=== PATIENT | female | born 1935 | race Caucasian/White ===

== ENCOUNTER 2017-07-08 12:15 | Observation (INO) | payer MEDICARE, OTHER ==
[~2017-07-08] VITALS: Ht 154.9 cm; Wt 93.5 kg
[~2017-07-08 12:15] MED LIST: AMLO5 PO; ASPI325 PO; ASPI81EC PO; ATOR10 PO; CALCAVITD PO; CEPH500 PO; CHOL10002 PO; CLOBETTC TP; CYAN100 PO; Diovan320 MG PO; FISH1000 PO; FURO40 PO; GABA300 PO; HYDACE5 PO; HYDR1TAB94 PO; ISOMON60ER PO; Isosorbide Mono60 MG PO; Keflex500 MG PO; LEVFLO500 PO; LEVSOD100 PO; LEVSOD88 PO; LISI5 PO; MAGCHL64ER PO; MAGOXI400 PO; METO50ER PO; MULVITMIND PO; NEBI10 PO; NITR.4SL SL; OLME20 PO; PIOG30 PO; PYRI100 PO; RANO500T PO; SIMV40 PO; SITA50T2 PO; TOCO400 PO; ZINC15 PO; ZINC220 PO
[2017-07-08 12:50] LABS: BASOPHILS ABSOLUTE AUTO 0.03 K/mm3 (0.00-0.23); BASOPHILS PERCENT AUTO 1 % (0-2); EOSINOPHILS ABSOLUTE AUTO 0.15 K/mm3 (0.00-0.68); EOSINOPHILS PERCENT AUTO 3 % (0-6); Hemoglobin 11.7 g/dL (11.5-16.0); IMMATURE GRAN ABSOLUTE AUTO 0.01 K/mm3 (0.00-0.10); IMMATURE GRAN PERCENT AUTO 0 % (0-1); LYMPHOCYTES ABSOLUTE AUTO 1.34 K/mm3 (0.84-5.20); LYMPHOCYTES PERCENT AUTO 29 % (21-46); MONOCYTES ABSOLUTE AUTO 0.37 K/mm3 (0.16-1.47); MONOCYTES PERCENT AUTO 8 % (4-13); Mean Corpuscular HGB 33.1 pg (26.0-34.0); Mean Corpuscular HGB Conc 34.4 g/dL (31.5-36.5); Mean Corpuscular Volume 96 fL (80-100); Mean Platelet Volume 9.1 fL (9.1-12.4); NEUTROPHILS ABSOLUTE AUTO 2.73 K/mm3 (1.96-9.15); NEUTROPHILS PERCENT AUTO 59 % (41-73); Platelet Count 164 K/mm3 (150-400); RDW Coefficient Variation 13.9 % (11.7-14.2); RDW Standard Deviation 48.9 fL (35.1-46.3); Red Blood Cell Count 3.54 M/mm3 (3.80-5.20); White Blood Cell Count 4.63 K/mm3 (4.00-11.30)
[2017-07-08 13:11] LABS: Alanine Aminotransfer (ALT/SGP 11 U/L (12-78); Albumin, Blood 3.4 g/dL (3.4-5.0); Albumin/Globulin Ratio 1.1 (0.8-1.8); Alk Phos 65 U/L (50-136); Anion Gap 6 mmol/L (6-16); Aspartate Aminotrans (AST/SGOT 21 U/L (12-37); Bilirubin, Total 0.7 mg/dL (0.1-1.0); Blood Urea Nitrogen 45 mg/dL (8-24); Bun/Creatinine Ratio 32.8 (12.0-20.0); CO2, Blood 30 mmol/L (21-32); Calcium, Blood 8.7 mg/dL (8.5-10.1); Chloride, Blood 98 mmol/L (98-108); Creatinine, Blood 1.37 mg/dL (0.40-1.00); Glomerular Filtration Rate 39 (60-); Glucose, Blood 132 mg/dL (70-99); Potassium, Blood 4.1 mmol/L (3.5-5.5); Sodium, Blood 134 mmol/L (136-145); Total Protein, Blood 6.4 g/dL (6.4-8.2)
[2017-07-08 13:12] LABS: Troponin I <0.015 ng/mL (0.000-0.040)
[2017-07-08] MEDS ORDERED: Macrodantin25 MG PO (17:12)
[2017-07-08] MEDS ORDERED: Carbidopa-Levo1 EAC1 PO (17:14)
[2017-07-09] MEDS ORDERED: VALS80 PO (14:36)
== END 2017-07-09 15:16 | disposition home or self-care (01) ==
LOC: ER 12:15 → MEDS 12:16 → ENPENDDIS 07-09 14:15 → MEDS 07-09 15:16
PROVIDERS: Physician Assistant
DX: R55 Syncope and collapse (principal); R47.81 Slurred speech; E78.5 Hyperlipidemia, unspecified; E03.9 Hypothyroidism, unspecified; I13.10 Hypertensive heart and chronic kidney disease without heart failure, with stage 1 through stage 4 chronic kidney disease, or unspecified chronic kidney disease; E11.22 Type 2 diabetes mellitus with diabetic chronic kidney disease; N18.3 Chronic kidney disease, stage 3 (moderate); I25.10 Atherosclerotic heart disease of native coronary artery without angina pectoris; G89.29 Other chronic pain; M54.5 Low back pain; G47.33 Obstructive sleep apnea (adult) (pediatric); G20 Parkinson's disease; Z95.0 Presence of cardiac pacemaker; Z98.890 Other specified postprocedural states; Z95.5 Presence of coronary angioplasty implant and graft; Z88.0 Allergy status to penicillin; Z88.1 Allergy status to other antibiotic agents; Z88.6 Allergy status to analgesic agent; Z88.8 Allergy status to other drugs, medicaments and biological substances; Z79.2 Long term (current) use of antibiotics; Z79.899 Other long term (current) drug therapy
CPT/HCPCS: 36415; 70450; 71046; 80053; 81000; 82947; 84484; 85025; 93005; 93010; 96372; 99285; G0378; J1650

== ENCOUNTER → 2017-12-03 | Outpatient (CLI) | payer MEDICARE, OTHER ==
[~2017-12-03] MED LIST changes: +Carbidopa-Levo1 EAC1 PO; +Macrodantin25 MG PO; +VALS80 PO
[2017-12-03 10:53] LABS: BASOPHILS ABSOLUTE AUTO 0.04 K/mm3 (0.00-0.23); BASOPHILS PERCENT AUTO 1 % (0-2); EOSINOPHILS ABSOLUTE AUTO 0.22 K/mm3 (0.00-0.68); EOSINOPHILS PERCENT AUTO 4 % (0-6); Hematocrit 38.6 % (33.0-51.0); Hemoglobin 13.6 g/dL (11.5-16.0); IMMATURE GRAN ABSOLUTE AUTO 0.03 K/mm3 (0.00-0.10); IMMATURE GRAN PERCENT AUTO 1 % (0-1); LYMPHOCYTES PERCENT AUTO 24 % (21-46); MONOCYTES ABSOLUTE AUTO 0.46 K/mm3 (0.16-1.47); MONOCYTES PERCENT AUTO 9 % (4-13); Mean Corpuscular HGB 32.2 pg (26.0-34.0); Mean Corpuscular HGB Conc 35.2 g/dL (31.5-36.5); Mean Corpuscular Volume 92 fL (80-100); Mean Platelet Volume 9.2 fL (9.1-12.4); NEUTROPHILS PERCENT AUTO 61 % (41-73); Platelet Count 209 K/mm3 (150-400); RDW Coefficient Variation 12.3 % (11.7-14.2); RDW Standard Deviation 41.1 fL (35.1-46.3); Red Blood Cell Count 4.22 M/mm3 (3.80-5.20); White Blood Cell Count 5.05 K/mm3 (4.00-11.30)
[2017-12-03 11:02] LABS: Albumin, Blood 3.4 g/dL (3.4-5.0); Albumin/Globulin Ratio 0.9 (0.8-1.8); Bilirubin, Total 0.5 mg/dL (0.1-1.0); Creatinine, Blood 1.39 mg/dL (0.40-1.00); Globulin, Blood 3.8 g/dL (2.2-4.0); Potassium, Blood 4.7 mmol/L (3.5-5.5); Total Protein, Blood 7.2 g/dL (6.4-8.2)
== END ==
LOC: LAB EV 10:49 → LAB SHORT 10:49
PROVIDERS: Physician Assistant Medical
DX: R19.7 Diarrhea, unspecified (principal)
CPT/HCPCS: 80053; 85025

== ENCOUNTER → 2017-12-05 | Outpatient (CLI) | payer MEDICARE, OTHER ==
[2017-12-05 22:09] LABS: Stool Occult Bld Immuno 1 Negative (NEGATIVE)
== END | disposition home or self-care (01) ==
LOC: LAB EV 05:59
PROVIDERS: Physician Assistant Medical
DX: R19.7 Diarrhea, unspecified (principal)
CPT/HCPCS: 82274

== ENCOUNTER → 2018-07-03 | Outpatient (CLI) | payer MEDICARE, OTHER | END | disposition home or self-care (01) | LOC: LAB EV 10:25 → LAB SHORT 10:25 | DX: N39.0 Urinary tract infection, site not specified (principal) | CPT/HCPCS: 87077; 87086; 87186 ==

== ENCOUNTER → 2019-01-10 | Outpatient (CLI) | payer MEDICARE, OTHER | END | disposition home or self-care (01) | LOC: PLD 09:06 → LAB SHORT 09:06 | DX: D22.5 Melanocytic nevi of trunk (principal) | CPT/HCPCS: 88305 ==

== ENCOUNTER → 2020-01-04 | Outpatient (CLI) | payer MEDICARE, OTHER | END | disposition home or self-care (01) | LOC: LAB EV 09:44 → LAB SHORT 09:44 | DX: N39.0 Urinary tract infection, site not specified (principal) | CPT/HCPCS: 87077; 87086; 87186 ==

== ENCOUNTER → 2020-02-06 | Outpatient (CLI) | payer MEDICARE, OTHER | END | disposition home or self-care (01) | LOC: LAB SHORT 09:04 → PLD 09:04 | DX: C44.319 Basal cell carcinoma of skin of other parts of face (principal) | CPT/HCPCS: 88305 ==

== ENCOUNTER → 2020-04-23 | Outpatient (CLI) | payer MEDICARE, OTHER | END | disposition home or self-care (01) | LOC: LAB EV 10:12 → LAB SHORT 10:12 | DX: N39.0 Urinary tract infection, site not specified (principal) | CPT/HCPCS: 87077; 87086; 87186 ==

== ENCOUNTER → 2020-05-19 | Outpatient (CLI) | payer MEDICARE, OTHER ==
[~2020-05-19] MED LIST changes: +CARBIDOPA-LEVO1 EA15 PO; +CATAPRES0.1 MG PO; -Carbidopa-Levo1 EAC1 PO; +FLUTICASONE PRO16 GM; +METF500 PO; +METO25 PO; +NITROFURANTOIN25 MG PO; +OLMESARTAN MEDO20 MG PO; +OMEP20ER PO; +XARELTO20 MG PO
[2020-05-22 07:10] LABS: CORONAVIRUS (COVID19) CSH-NRL Positive (Negative)
== END ==
LOC: LAB 10:30 → LAB SHORT 10:30
PROVIDERS: Physician Assistant
DX: U07.1 COVID-19 (principal)
CPT/HCPCS: U0003

== ENCOUNTER 2020-06-02 16:47 | Inpatient (IN) | payer MEDICARE, OTHER ==
[~2020-06-02] VITALS: Ht 157.5 cm; Wt 90.0 kg
[~2020-06-02 16:47] MED LIST changes: -AMLO5 PO; -ASCO500 PO; -ATOR10 PO; -ATOR20 PO; -CALCITONIN-SAL3.7 M5; -CALCIUM 600 +1 EA11 PO; -CARBIDOPA-LEVO1 EA15 PO; -CATAPRES0.1 MG PO; -CENTRUM SILVER1 EAC2 PO; -CYMBALTA30 M2 PO; -DOCU100 PO; -FISH OIL 1,2001 EAC1 PO; -FLUTICASONE PRO16 GM; -FURO80 PO; -FUROSEMIDE40 MG PO; -GABA300 PO; -Isosorbide Mono60 MG PO; -LEVSOD88 PO; -METF500 PO; -METO25 PO; -METOPROLOL TART25 MG PO; -NITR100CA PO; -NITROFURANTOIN25 MG PO; -OLMESARTAN MEDO20 MG PO; -OMEP20ER PO; -SENN187 PO; -THERA-D2000 UNIT PO; -Vitamin B Comple1 EA PO; -XARELTO20 MG PO
[2020-06-02 17:40] LABS: BASOPHILS ABSOLUTE AUTO 0.07 K/mm3 (0.00-0.23); BASOPHILS PERCENT AUTO 1 % (0-2); EOSINOPHILS ABSOLUTE AUTO 0.13 K/mm3 (0.00-0.68); EOSINOPHILS PERCENT AUTO 1 % (0-6); Hematocrit 43.3 % (33.0-51.0); Hemoglobin 14.7 g/dL (11.5-16.0); IMMATURE GRAN ABSOLUTE AUTO 0.18 K/mm3 (0.00-0.10); IMMATURE GRAN PERCENT AUTO 2 % (0-1); LYMPHOCYTES ABSOLUTE AUTO 1.07 K/mm3 (0.84-5.20); LYMPHOCYTES PERCENT AUTO 12 % (21-46); MONOCYTES ABSOLUTE AUTO 0.75 K/mm3 (0.16-1.47); MONOCYTES PERCENT AUTO 8 % (4-13); Mean Corpuscular HGB 31.3 pg (26.0-34.0); Mean Corpuscular HGB Conc 33.9 g/dL (31.5-36.5); Mean Corpuscular Volume 92 fL (80-100); Mean Platelet Volume 10.1 fL (9.1-12.4); NEUTROPHILS ABSOLUTE AUTO 6.98 K/mm3 (1.96-9.15); NEUTROPHILS PERCENT AUTO 76 % (41-73); RDW Coefficient Variation 12.3 % (11.7-14.2); RDW Standard Deviation 42.2 fL (35.1-46.3); White Blood Cell Count 9.18 K/mm3 (4.00-11.30)
[2020-06-02 17:57] LABS: Platelet Count 174 K/mm3 (150-400)
[2020-06-02 17:58] LABS: Albumin, Blood 2.6 g/dL (3.4-5.0); Albumin/Globulin Ratio 0.5 (0.8-1.8); Bilirubin, Total 0.7 mg/dL (0.1-1.0); Bun/Creatinine Ratio 42.1 (12.0-20.0); Calcium, Blood 9.1 mg/dL (8.5-10.1); Globulin, Blood 4.9 g/dL (2.2-4.0); Potassium, Blood 5.4 mmol/L (3.5-5.5); Total Protein, Blood 7.5 g/dL (6.4-8.2); Troponin I 0.14 ng/mL (0.000-0.040)
[2020-06-02] MEDS ORDERED: OLMESARTAN MEDO20 MG PO (19:45)
[2020-06-02] MEDS ORDERED: GABA300 PO (19:45)
[2020-06-02] MEDS ORDERED: LEVSOD88 PO (19:46)
[2020-06-02] MEDS ORDERED: CATAPRES0.1 MG PO (19:46)
[2020-06-02] MEDS ORDERED: Isosorbide Mono60 MG PO (19:48)
[2020-06-02] MEDS ORDERED: AMLO5 PO (19:48)
[2020-06-02] MEDS ORDERED: NITROFURANTOIN25 MG PO (19:49)
[2020-06-02] MEDS ORDERED: ATOR10 PO (19:52)
[2020-06-02] MEDS ORDERED: CARBIDOPA-LEVO1 EA15 PO (19:52)
[2020-06-02] MEDS ORDERED: OMEP20ER PO (19:53)
[2020-06-02] MEDS ORDERED: FLUTICASONE PRO16 GM (19:53)
[2020-06-02 22:36] LABS: Influenza A, PCR Negative (NEGATIVE); Influenza B, PCR Negative (NEGATIVE); Resp Syncytial Virus, PCR Negative (NEGATIVE)
[2020-06-02 22:38] LABS: SARS-Cov-2 (COVID-19) PCR, MMC Positive (NEGATIVE)
--- NOTE | 2020-06-02 23:32 | NUR ---
MESSAGE LEFT FOR PALLIATIVE CAARE FOR CONSULT ORDERED BY DR PATHAK.
--- NOTE | 2020-06-02 23:46 | NUR ---
84 YR OLD FEMALE ADMITTED TO UNIT WITH (+) COVID 19 TESTING, SENT TO ED FROM [place] FOR TREATMENT. ALERT AND ORIENTED. ORIENTED TO CALL LIGHT, AGREES NOT TO GET OUT OF BED WITHOUT CALLING STAFF FOR ASSIST. PLACED ON DROPLET PRECAUTIONS FOR COVID 19. CALL LIGHT IN REACH
--- NOTE | 2020-06-03 03:47 | NUR ---
SHIFT SUMMARY HAS BEEN RESTING QUIETLY WITH FEW INTERRUPTIONS. ASSISTED TO BEDSIDE COMMODE, MED Social[employer]ze IN USE. NO C/O DISTRESS. CALL LIGHT IN REACH. ISOLATION PRECAUTIONS MAINTAINED.
[2020-06-03 07:02] LABS: Bun/Creatinine Ratio 34.3 (12.0-20.0); Calcium, Blood 8.7 mg/dL (8.5-10.1); Creatinine, Blood 1.02 mg/dL (0.40-1.00); Potassium, Blood 4.7 mmol/L (3.5-5.5); Thyroid Stimulating Hormone 1.9 uIU/mL (0.360-4.800); Troponin I 0.244 ng/mL (0.000-0.040)
--- NOTE | 2020-06-03 10:46 | NUR ---
PT IS A/OX3, PLEASANT AND COOPERATIVE, APPEARS TO BE BREATHING EASILY AT THIS TIME, PT DENIES ANY CHEST PAIN AT THIS TIME, PTS TROPONIN I WAS CALLED INTO DR. PEREZ THIS AM, CALL LIGHT IN REACH
--- NOTE | 2020-06-03 16:28 | NUR ---
Karine was resting and appeared comfortable and well managed. Her grandson JEANETTE was at the bedside showing concern, attention and love. Karine expressed grief and sorrow over her daughters impending demise and was appropriately distressed and heartbroken that she was unable to more present with them in thier time of need and loss. I provided psychological first aid and offered inspirational encouragement and audible prayer for consolation, healing and closure. Karine showed clear signs of relief, appreciation and strengthened willow.
--- NOTE | 2020-06-03 16:35 | NUR ---
PT IS A/OX3, PLEASANT AND COOPERATIVE, THE PT APPEARS TO BE BREATHING EASILY ON RA AT REST THE PT REPORTED FEELING WEAK AND SOB WITH AMBULATION INTO THE BATHROOM, THE PT HAS BEEN EMOTIONALY DISTRAUGHT OVER HER 2 CHILDREN ALSO HERE IN THE HOSPITAL WITH POOR PROGNOSIS, MICHELE CARMONA CAME AND VISITED AND OFFERED SUPPORT TO THE PT AND HER FAMILY, PT GRANDCHILDREN HAVE VISITED WITH HER TODAY, CALL LIGHT IN REACH, WILL CONTINUE TO MONITOR AND ASSESS FOR CHANGES, PT DENIED ANY C/P OR PRESSURE THIS AM
[2020-06-04 06:00] LABS: BASOPHILS ABSOLUTE AUTO 0.01 K/mm3 (0.00-0.23); BASOPHILS PERCENT AUTO 0 % (0-2); EOSINOPHILS ABSOLUTE AUTO 0.01 K/mm3 (0.00-0.68); EOSINOPHILS PERCENT AUTO 0 % (0-6); Hematocrit 36.4 % (33.0-51.0); Hemoglobin 12.1 g/dL (11.5-16.0); IMMATURE GRAN ABSOLUTE AUTO 0.07 K/mm3 (0.00-0.10); IMMATURE GRAN PERCENT AUTO 1 % (0-1); LYMPHOCYTES ABSOLUTE AUTO 0.61 K/mm3 (0.84-5.20); LYMPHOCYTES PERCENT AUTO 11 % (21-46); MONOCYTES PERCENT AUTO 2 % (4-13); Mean Corpuscular HGB 31.3 pg (26.0-34.0); Mean Corpuscular HGB Conc 33.2 g/dL (31.5-36.5); Mean Corpuscular Volume 94 fL (80-100); Mean Platelet Volume 9.6 fL (9.1-12.4); NEUTROPHILS ABSOLUTE AUTO 4.91 K/mm3 (1.96-9.15); NEUTROPHILS PERCENT AUTO 86 % (41-73); Platelet Count 216 K/mm3 (150-400); RDW Coefficient Variation 12.4 % (11.7-14.2); RDW Standard Deviation 42.8 fL (35.1-46.3); Red Blood Cell Count 3.86 M/mm3 (3.80-5.20); White Blood Cell Count 5.71 K/mm3 (4.00-11.30)
[2020-06-04 06:25] LABS: Bun/Creatinine Ratio 42.6 (12.0-20.0); Calcium, Blood 8.9 mg/dL (8.5-10.1); Creatinine, Blood 1.08 mg/dL (0.40-1.00); Potassium, Blood 5.7 mmol/L (3.5-5.5); Troponin I 0.081 ng/mL (0.000-0.040)
--- NOTE | 2020-06-04 06:37 | NUR ---
SHIFT SUMMARY PT IS AN 84 Y/O FEMALE, ADMITTED FOR ELEVATED TROPONINS AND COVID19 POSITIVE. SGE IS A&O X 3, 1PA TO THE [facility] [place]. PT SATS > 90% ON RA, BUT DOES REPORT DYSPNEA WITH EXERTION. VITAL SIGNS STABLE. TELE SHOWED PACED/AFIB IN THE 60S. NO C/O ACUTE PAIN OR NAUSEA. NO ACUTE CHANGES IN PT CONDITION NOTED. PT SLEPT WELL THROUGH THE NIGHT. WILL CONTINUE TO MONITOR AND TREAT PER EMAR UNTIL HAND OFF TO DAY SHIFT RN.
--- NOTE | 2020-06-04 16:21 | NUR ---
PT IS A/OX3, PLEASANT AND COOPERATIVE, THE PT IS UP WITH MINIMAL ASSIST TO THE BATHROOM,TODAY THE PT FELT THAT SHE WAS BREATHING A LITTLE EASIER, HOWEVER STILL SOMEWHAT SOB WITH ACTIVITY, THE PT WAS ABLE TO TOLEERATE A SHOWER TODAY, PT WAS UP IN THE [facility] FOR MEALS, THE PT DENIED ANY CHEST PAIN OR PRESSURE T/O THE DAY, FAMILY HAS BEEN IN TO SEE THE PT, SPITITUAL CARE HAS BEEN IN TO SEE THE PT ALSO, CALL LIGHT IN REACH, WILL CONTINUE TO MONITOR AND ASSESS FOR CHANGES
--- NOTE | 2020-06-04 16:39 | NUR ---
Spiritual care note: Facilitated conversation with Karine about her family. Encouraged her to speak about her dtr's lives. She has a strong willow that is sustaining her through this terrible time. Karine is deeply appreciaitive of prayer and spiritual insurance counselor. We explored her willow and beleifs around illness. We prayed together for her daughter's peace at her request. She tells me she wishes/hopes they don't have to linger. Family is being very attentive. I will remain available.
--- NOTE | 2020-06-04 19:05 | NUR ---
ASSUMED CARE RECEIVED REPORT FROM PER CRUZ. ASSUMED CARE OF PT. PT RESTING IN BED COMFORTABLY, NO S/S ACUTE DISTRESS NOTED, TALKING TO FAMILY. NO SIGNS OF RESPIRATORY DISTRESS NOTED. DENIES OTHER NEEDS AT THIS TIME. CALL LIGHT, POSSESSIONS IN REACH, BED IN LOW POSITION. WCTM.
--- NOTE | 2020-06-05 05:39 | NUR ---
SHIFT SUMMARY PT RESTING COMFORTABLY, NO S/S ACUTE DISTRESS NOTED, O2 SATS STABLE ON RA. VS REVIEWED, WNL; 02 SATS STABLE ON RA. PT DESATS WITH ACTIVITY, RECOVERS QUICKLY. SLEPT T/O MUCH OF THE NIGHT. APPEARS TO BE IN GOOD SPIRITS. PT DENIES FURTHER NEEDS AT THIS TIME. CALL LIGHT AND POSSESSIONS IN REACH, BED IN LOW POSITION WITH ALARMS ON. WCTM, REPORT OFF TO DAY RN.
[2020-06-05 05:42] LABS: BASOPHILS ABSOLUTE AUTO 0.01 K/mm3 (0.00-0.23); BASOPHILS PERCENT AUTO 0 % (0-2); EOSINOPHILS PERCENT AUTO 0 % (0-6); Hematocrit 34.4 % (33.0-51.0); Hemoglobin 11.6 g/dL (11.5-16.0); IMMATURE GRAN ABSOLUTE AUTO 0.13 K/mm3 (0.00-0.10); IMMATURE GRAN PERCENT AUTO 1 % (0-1); LYMPHOCYTES ABSOLUTE AUTO 0.86 K/mm3 (0.84-5.20); LYMPHOCYTES PERCENT AUTO 7 % (21-46); MONOCYTES ABSOLUTE AUTO 0.42 K/mm3 (0.16-1.47); MONOCYTES PERCENT AUTO 3 % (4-13); Mean Corpuscular HGB 31.5 pg (26.0-34.0); Mean Corpuscular HGB Conc 33.7 g/dL (31.5-36.5); Mean Corpuscular Volume 94 fL (80-100); Mean Platelet Volume 9.8 fL (9.1-12.4); NEUTROPHILS ABSOLUTE AUTO 11.89 K/mm3 (1.96-9.15); NEUTROPHILS PERCENT AUTO 89 % (41-73); Platelet Count 253 K/mm3 (150-400); RDW Coefficient Variation 12.2 % (11.7-14.2); RDW Standard Deviation 41.9 fL (35.1-46.3); Red Blood Cell Count 3.68 M/mm3 (3.80-5.20); White Blood Cell Count 13.31 K/mm3 (4.00-11.30)
[2020-06-05 06:02] LABS: Albumin, Blood 2.3 g/dL (3.4-5.0); Albumin/Globulin Ratio 0.6 (0.8-1.8); Bilirubin, Total 0.4 mg/dL (0.1-1.0); Bun/Creatinine Ratio 41.9 (12.0-20.0); Calcium, Blood 9.6 mg/dL (8.5-10.1); Creatinine, Blood 1.29 mg/dL (0.40-1.00); Globulin, Blood 4.1 g/dL (2.2-4.0); Potassium, Blood 5.5 mmol/L (3.5-5.5); Total Protein, Blood 6.4 g/dL (6.4-8.2)
--- NOTE | 2020-06-05 17:47 | NUR ---
SHIFT SUMMARY PT AxOx4. PLEASANT AND COOPERATIVE WITH CARE. PT STATES SHE FEELS LIKE SHE IS GETTING BETTER. ABLE TO WALK TO BATHROOM WITH SBA WITHOUT FATIGUING. PT HAD PT TODAY AND WAS ENCOURAGED TO WALK AROUND THE ROOM BEFORE MEALS. PT EMOTIONAL TODAY HER 2 DAUGHTERS ARE ALSO ADMITTED TO THE HOSPITAL AND NOT DOING WELL. PT ABLE TO GO VISIT ONE DAUGHTER TODAY. DIRECTOR APPOINTMENT REPORTS HR AFIB PACED AT 68. PT BREATHING WITHOUT DIFFICULTY ON RA WITH SATS IN MID 90'S. PT DENIES PAIN. APPETITE GOOD. VITALS REVIEWED. CURRENTLY RESTING IN RECLINER EATING DINNER. CALL LIGHT IN REACH. PLAN IS TO STAY IN HOSPITAL FOR A COUPLE MORE DAYS FOR ADI DAVEN[place], DEEPA, AND FIGURE OUT DC PLAN WITH CURRENT FAMILY CRISIS.
--- NOTE | 2020-06-05 19:10 | NUR ---
ASSUMED CARE RECEIVED REPORT FROM PER CRUZ. ASSUMED CARE OF PT. RESTING COMFORTABLY, NO S/S ACUTE DISTRESS NOTED, RESPS E/U. DENIES NEEDS AT THIS TIME. CALL LIGHT, POSSESSIONS IN REACH, BED IN LOW POSITIO WITH FWW IN REACH. WCTM.
--- NOTE | 2020-06-06 02:40 | NUR ---
PT REQUESTING TO SEE SON-IN-LAW, THIS RN INFORMED HIM OF PT'S REQUEST. SON-IN-LAW VISITED PT, STATED "IF ANYTHING WERE TO HAPPEN TO HER, PLEASE LET ME KNOW."
--- NOTE | 2020-06-06 04:36 | NUR ---
SHIFT SUMMARY PT ASLEEP, NO S/S ACUTE DISTRESS NOTED. HAS BEEN INDEPENDENT IN ROOM. PT AMBULATES WELL C FWW. VS REVIEWED, WNL, O2 SATS REMAIN STABLE ON RA. DENIES PAIN OR NEEDS AT THIS TIME. CALL LIGHT, POSSESSIONS IN REACH, BED IN LOW POSITION. WCTM, REPORT OFF TO ONCOMING RN.
[2020-06-06 05:19] LABS: BASOPHILS ABSOLUTE AUTO 0.01 K/mm3 (0.00-0.23); BASOPHILS PERCENT AUTO 0 % (0-2); EOSINOPHILS PERCENT AUTO 0 % (0-6); Hematocrit 33.8 % (33.0-51.0); Hemoglobin 11.3 g/dL (11.5-16.0); IMMATURE GRAN ABSOLUTE AUTO 0.12 K/mm3 (0.00-0.10); IMMATURE GRAN PERCENT AUTO 1 % (0-1); LYMPHOCYTES ABSOLUTE AUTO 0.62 K/mm3 (0.84-5.20); LYMPHOCYTES PERCENT AUTO 5 % (21-46); MONOCYTES ABSOLUTE AUTO 0.42 K/mm3 (0.16-1.47); MONOCYTES PERCENT AUTO 3 % (4-13); Mean Corpuscular HGB 31.7 pg (26.0-34.0); Mean Corpuscular HGB Conc 33.4 g/dL (31.5-36.5); Mean Corpuscular Volume 95 fL (80-100); Mean Platelet Volume 9.7 fL (9.1-12.4); NEUTROPHILS ABSOLUTE AUTO 12.55 K/mm3 (1.96-9.15); NEUTROPHILS PERCENT AUTO 91 % (41-73); Platelet Count 266 K/mm3 (150-400); RDW Coefficient Variation 12.4 % (11.7-14.2); RDW Standard Deviation 43.3 fL (35.1-46.3); Red Blood Cell Count 3.56 M/mm3 (3.80-5.20); White Blood Cell Count 13.72 K/mm3 (4.00-11.30)
[2020-06-06 05:53] LABS: Bun/Creatinine Ratio 46.8 (12.0-20.0); Calcium, Blood 9.7 mg/dL (8.5-10.1); Creatinine, Blood 1.09 mg/dL (0.40-1.00); Potassium, Blood 5.5 mmol/L (3.5-5.5)
--- NOTE | 2020-06-06 17:52 | NUR ---
SHIFT SUMMARY PATIENT IS PLEASANT. POOR PATIENT IS GRIEVING THE LOSS OF HER TWO DAUGHTERS. SHE DENIES ANY OTHER CONCERNS AT THIS TIME. SHE REFUSED HER INSULIN BECAUSE SHE HAD NO APPETITE. MAY NEED COVERAGE TONIGHT IF SHE IS HIGH.
[2020-06-07 06:16] LABS: Anion Gap 3 mmol/L (6-16); Blood Urea Nitrogen 45 mg/dL (8-24); Bun/Creatinine Ratio 47.8 (12.0-20.0); CO2, Blood 27 mmol/L (21-32); Calcium, Blood 9.7 mg/dL (8.5-10.1); Chloride, Blood 107 mmol/L (98-108); Creatinine, Blood 0.94 mg/dL (0.40-1.00); Glomerular Filtration Rate >60 (60-); Glucose, Blood 207 mg/dL (70-99); Potassium, Blood 5.4 mmol/L (3.5-5.5); Sodium, Blood 137 mmol/L (136-145)
--- NOTE | 2020-06-07 06:26 | NUR ---
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 Lung sounds clear in upper lobes with diminished lung sounds in lower lobes. No complaints of discomfort. She is independent to bathroom ( with walker)
--- NOTE | 2020-06-07 18:14 | NUR ---
SHIFT SUMMARY PATIENT IS PLEASANT, ALERT AND ORIENTED INDEPENDENT. PATIENT IS DOING BETTER TODAY. SHE STATES THAT SHE IS FEELING BETTER EMOTIONALLY. BLOOD SUGARS HAVE DONE WELL WITH THE INSULINCHANGE TODAY AND HER INCREASE IN APPETITE. SHE HAD DOSE 3/4 OF REMDEZIVIR. SHE ALSO STATES THAT AT HOME SHE DOES NOT HAVE MANY CARBS IN HER DIET. SHE WAS ABLE TO SHOWER TODAY.
--- NOTE | 2020-06-08 05:20 | NUR ---
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 No complaints of pain. Aware she has one more treatment with Remdesivir today before she can be discharged. States breathing much less work than a few days ago. Walks slowly but independently with FWW to bathroom and back to bed with staff present in room. Looking forward to discharge home
[2020-06-08 06:18] LABS: Bun/Creatinine Ratio 42.6 (12.0-20.0); Calcium, Blood 9.4 mg/dL (8.5-10.1); Creatinine, Blood 1.01 mg/dL (0.40-1.00); Potassium, Blood 4.9 mmol/L (3.5-5.5)
[2020-06-08] MEDS ORDERED: XARELTO20 MG PO (14:02)
[2020-06-08] MEDS ORDERED: METF500 PO (14:02)
[2020-06-08] MEDS ORDERED: METO25 PO (14:03)
--- NOTE | 2020-06-08 15:59 | NUR ---
DISCHARGE SUMMARY NO ACUTE CONCERNS AT THIS TIME. PATIENT IS ALERT AND ORIENTED. INDEPENDENT IN THE ROOM. PATIENT'S GRANDSON ARRIVED TO PICK PATIENT UP. ALL DISCHARGE INSTRUCTIONS TALKED THROUGH WITH PATIENT. ALL MEDICATIONS SENT TO PHARMACY OF CHOICE. PATIENT WHEELED DOWN BY CHARGE NURSE.
== END 2020-06-08 14:35 | disposition home or self-care (01) | DRG 177 ==
LOC: ER 16:47 → MEDS 16:48
PROVIDERS: Emergency Medicine; Family Medicine; ADMIT Internal Medicine
PROC: XW033E5 Introduction of Remdesivir Anti-infective into Peripheral Vein, Percutaneous Approach, New Technology Group 5 (ICD-10-PCS; principal; 2020-06-04)
DX: U07.1 COVID-19 (principal); J12.89 Other viral pneumonia; I24.8 Other forms of acute ischemic heart disease; N17.9 Acute kidney failure, unspecified; I13.0 Hypertensive heart and chronic kidney disease with heart failure and stage 1 through stage 4 chronic kidney disease, or unspecified chronic kidney disease; I50.32 Chronic diastolic (congestive) heart failure; Z66 Do not resuscitate; E03.9 Hypothyroidism, unspecified; E11.22 Type 2 diabetes mellitus with diabetic chronic kidney disease; E11.65 Type 2 diabetes mellitus with hyperglycemia; E78.5 Hyperlipidemia, unspecified; E87.5 Hyperkalemia; G20 Parkinson's disease; G47.33 Obstructive sleep apnea (adult) (pediatric); I25.10 Atherosclerotic heart disease of native coronary artery without angina pectoris; I48.0 Paroxysmal atrial fibrillation; N18.30 Chronic kidney disease, stage 3 unspecified; Z95.5 Presence of coronary angioplasty implant and graft; Z95.0 Presence of cardiac pacemaker; G89.29 Other chronic pain; M54.5 Low back pain; I05.0 Rheumatic mitral stenosis; R54 Age-related physical debility
CPT/HCPCS: 0241U; 36415; 80048; 80053; 82947; 84145; 84443; 84484; 85025; 93005; 93010; 93306; 96374; 96375; 96376; 97110; 97116; 97162; 99285-25; A9270; A9270-GY; G0378; J1815; J2920; J7030

== ENCOUNTER → 2020-06-02 | Outpatient (CLI) | payer MEDICARE, OTHER ==
[~2020-06-02] MED LIST changes: +ASCO500 PO; +ATOR20 PO; +CALCITONIN-SAL3.7 M5; +CALCIUM 600 +1 EA11 PO; +CENTRUM SILVER1 EAC2 PO; +CYMBALTA30 M2 PO; +DOCU100 PO; +FISH OIL 1,2001 EAC1 PO; +FURO80 PO; +FUROSEMIDE40 MG PO; +METOPROLOL TART25 MG PO; +NITR100CA PO; +SENN187 PO; +THERA-D2000 UNIT PO; +Vitamin B Comple1 EA PO
[2020-06-02 15:44] LABS: BASOPHILS ABSOLUTE AUTO 0.04 K/mm3 (0.00-0.23); BASOPHILS PERCENT AUTO 1 % (0-2); EOSINOPHILS ABSOLUTE AUTO 0.12 K/mm3 (0.00-0.68); EOSINOPHILS PERCENT AUTO 1 % (0-6); Hemoglobin 14.1 g/dL (11.5-16.0); IMMATURE GRAN ABSOLUTE AUTO 0.15 K/mm3 (0.00-0.10); IMMATURE GRAN PERCENT AUTO 2 % (0-1); LYMPHOCYTES ABSOLUTE AUTO 0.87 K/mm3 (0.84-5.20); LYMPHOCYTES PERCENT AUTO 10 % (21-46); MONOCYTES ABSOLUTE AUTO 0.68 K/mm3 (0.16-1.47); MONOCYTES PERCENT AUTO 8 % (4-13); Mean Corpuscular HGB 32.3 pg (26.0-34.0); Mean Corpuscular HGB Conc 35.3 g/dL (31.5-36.5); Mean Corpuscular Volume 92 fL (80-100); Mean Platelet Volume 9.7 fL (9.1-12.4); NEUTROPHILS ABSOLUTE AUTO 6.92 K/mm3 (1.96-9.15); NEUTROPHILS PERCENT AUTO 79 % (41-73); Platelet Count 199 K/mm3 (150-400); RDW Coefficient Variation 12.5 % (11.7-14.2); RDW Standard Deviation 41.8 fL (35.1-46.3); Red Blood Cell Count 4.37 M/mm3 (3.80-5.20); White Blood Cell Count 8.78 K/mm3 (4.00-11.30)
[2020-06-02 16:10] LABS: Albumin, Blood 2.7 g/dL (3.4-5.0); Albumin/Globulin Ratio 0.5 (0.8-1.8); Bilirubin, Total 0.6 mg/dL (0.1-1.0); Bun/Creatinine Ratio 36.4 (12.0-20.0); Calcium, Blood 9.2 mg/dL (8.5-10.1); Creatinine, Blood 1.18 mg/dL (0.40-1.00); Potassium, Blood 4.6 mmol/L (3.5-5.5); Thyroid Stimulating Hormone 1.455 uIU/mL (0.360-4.800); Total Protein, Blood 7.7 g/dL (6.4-8.2); Troponin I 0.134 ng/mL (0.000-0.040)
== END | disposition home or self-care (01) ==
LOC: LAB EV 15:39
PROVIDERS: Chiropractor
DX: R53.83 Other fatigue (principal)
CPT/HCPCS: 80053; 84443; 84484; 85025

== ENCOUNTER 2020-09-06 15:07 | Inpatient (IN) | payer MEDICARE, OTHER ==
[~2020-09-06] VITALS: Ht 157.5 cm; Wt 93.2 kg
[~2020-09-06 15:07] MED LIST changes: +AMLO5 PO; +ATOR10 PO; +CARBIDOPA-LEVO1 EA15 PO; +CATAPRES0.1 MG PO; +FLUTICASONE PRO16 GM; +GABA300 PO; +Isosorbide Mono60 MG PO; +LEVSOD88 PO; +METF500 PO; +METO25 PO; +NITROFURANTOIN25 MG PO; +OLMESARTAN MEDO20 MG PO; +OMEP20ER PO; +XARELTO20 MG PO
[2020-09-06 16:48] LABS: BASOPHILS ABSOLUTE AUTO 0.01 K/mm3 (0.00-0.23); BASOPHILS PERCENT AUTO 0 % (0-2); EOSINOPHILS ABSOLUTE AUTO 0.02 K/mm3 (0.00-0.68); EOSINOPHILS PERCENT AUTO 0 % (0-6); Hematocrit 33.8 % (33.0-51.0); Hemoglobin 11.6 g/dL (11.5-16.0); IMMATURE GRAN ABSOLUTE AUTO 0.05 K/mm3 (0.00-0.10); IMMATURE GRAN PERCENT AUTO 1 % (0-1); LYMPHOCYTES ABSOLUTE AUTO 1.09 K/mm3 (0.84-5.20); LYMPHOCYTES PERCENT AUTO 11 % (21-46); MONOCYTES ABSOLUTE AUTO 0.75 K/mm3 (0.16-1.47); MONOCYTES PERCENT AUTO 8 % (4-13); Mean Corpuscular HGB Conc 34.3 g/dL (31.5-36.5); Mean Corpuscular Volume 93 fL (80-100); Mean Platelet Volume 9.7 fL (9.1-12.4); NEUTROPHILS PERCENT AUTO 81 % (41-73); Platelet Count 161 K/mm3 (150-400); RDW Coefficient Variation 13.8 % (11.7-14.2); RDW Standard Deviation 47.5 fL (35.1-46.3); Red Blood Cell Count 3.62 M/mm3 (3.80-5.20); White Blood Cell Count 9.92 K/mm3 (4.00-11.30)
[2020-09-06 16:55] LABS: Source, Urine Voided
[2020-09-06 16:59] LABS: Appearance, Urine Hazy (Clear); Bilirubin, Urine Neg (Neg); Blood, Urine Neg (Neg); Color, Urine Yellow (P-Yellow); Glucose Qualitative, Urine Neg (Neg); Ketones, Urine Neg (Neg); Leukocyte Esterase, Urine 1+ (Neg); Nitrite, Urine Neg (Neg); Protein, Urine 2+ (Neg); Specific Gravity, Urine 1.015 (1.003-1.022); Urobilinogen, Urine NORM (Normal)
[2020-09-06 17:05] LABS: International Normalized Ratio 1.07; Prothrombin Time Results 11.4 Sec (9.7-11.5)
[2020-09-06 17:06] LABS: Amorphous Light (0-Heavy); Bacteria Rare /hpf; Red Blood Cells, Urine Not Seen /hpf (0-2); Squamous Epithelial Cells Rare /hpf (Few); White Blood Cells, Urine 0-2 /hpf (0-5)
[2020-09-06 17:13] LABS: Thyroid Stimulating Hormone 0.781 uIU/mL (0.360-4.800); Troponin I <0.015 ng/mL (0.000-0.040)
[2020-09-06 17:14] LABS: Alanine Aminotransfer (ALT/SGP 6 U/L (12-78); Albumin, Blood 2.8 g/dL (3.4-5.0); Albumin/Globulin Ratio 0.7 (0.8-1.8); Alk Phos 64 U/L (50-136); Anion Gap 9 mmol/L (6-16); Aspartate Aminotrans (AST/SGOT 14 U/L (12-37); Bilirubin, Total 0.4 mg/dL (0.1-1.0); Blood Urea Nitrogen 179 mg/dL (8-24); Bun/Creatinine Ratio 39.7 (12.0-20.0); CO2, Blood 23 mmol/L (21-32); Calcium, Blood 9.5 mg/dL (8.5-10.1); Chloride, Blood 96 mmol/L (98-108); Creatinine, Blood 4.51 mg/dL (0.40-1.00); Globulin, Blood 3.9 g/dL (2.2-4.0); Glomerular Filtration Rate 10 (60-); Glucose, Blood 171 mg/dL (70-99); Potassium, Blood 5.2 mmol/L (3.5-5.5); Sodium, Blood 128 mmol/L (136-145); Total Protein, Blood 6.7 g/dL (6.4-8.2)
[2020-09-06] MEDS ORDERED: CALCITONIN-SAL3.7 M5 (17:49)
[2020-09-06] MEDS ORDERED: CYMBALTA30 M2 PO (17:49)
[2020-09-06] MEDS ORDERED: METOPROLOL TART25 MG PO (17:50)
[2020-09-06] MEDS ORDERED: FUROSEMIDE40 MG PO (17:51)
[2020-09-06] MEDS ORDERED: CALCIUM 600 +1 EA11 PO (18:03)
[2020-09-06] MEDS ORDERED: CENTRUM SILVER1 EAC2 PO (18:03)
[2020-09-06] MEDS ORDERED: FISH OIL 1,2001 EAC1 PO (18:03)
[2020-09-06] MEDS ORDERED: THERA-D2000 UNIT PO (18:04)
[2020-09-06] MEDS ORDERED: ASCO500 PO (18:05)
[2020-09-06] MEDS ORDERED: ATOR20 PO (18:06)
[2020-09-06] MEDS ORDERED: NITR100CA PO (18:06)
[2020-09-06] MEDS ORDERED: FURO80 PO (18:09)
[2020-09-06] MEDS ORDERED: Vitamin B Comple1 EA PO (18:13)
[2020-09-06 21:06] LABS: Albumin, Blood 2.7 g/dL (3.4-5.0); Anion Gap 12 mmol/L (6-16); Blood Urea Nitrogen 176 mg/dL (8-24); Bun/Creatinine Ratio 39.3 (12.0-20.0); CO2, Blood 20 mmol/L (21-32); Calcium, Blood 9.3 mg/dL (8.5-10.1); Chloride, Blood 98 mmol/L (98-108); Creatinine, Blood 4.48 mg/dL (0.40-1.00); Glomerular Filtration Rate 10 (60-); Glucose, Blood 166 mg/dL (70-99); Phosphorus, Blood 5.3 mg/dL (2.5-4.9); Potassium, Blood 5.3 mmol/L (3.5-5.5); Sodium, Blood 130 mmol/L (136-145)
--- NOTE | 2020-09-06 22:30 | NUR ---
Transfer from ED to ICU 3 @ 2037 Pt to ICU 3 via narciso, accompanied by ED nurse and patients son-in-law. Pt has one IV in left chest with NS infusing via gravity upon arrival. Powerglide placed to JAMES. Pt is A/O to being in hospital but unable to state correct year. Also has hallucinations of seeing her cat and attempts of grab at objects not present. Pt aware of having hallucinations and states they started yesterday. Pt is drowsy and easily falls asleep while communicating. Placed on 2 L via NC to keep SPO2 > 90%, destats while sleeping to 88%. Crackles noted on right lower lobe. Pt states having orders for CPAP but she does not like to wear it. Pt has low MAPs, Dr. Santo called and orders received for [address] Santo also updated on pts lab results. Pt in AFIB with occasional PVC's and occasionally paced.
--- NOTE | 2020-09-07 | NUR ---
Update- Provider Call Dr. Santo called and updated on patients echo results. Updated on patients soft BPs and bladder scan results of 39. Provider states to call if patients SBP in the 70's. Pt resting in bed, easily awaken. Continues to be A/O to being in hospital and in [place]. Pt continues to grab at objects not present and aware that objects are not present and states "I'm having another hallucination." Pt has visual hallucinations, denies auditory hallucinations. Oxygen decreased to 1 L via NC, SPO2 > 95%.
--- NOTE | 2020-09-07 01:30 | NUR ---
Update- low MAPs Dr. Santo called in regards to patients low BP, new orders recieved for another 500 ml NS bolus. Pt resting and easily awakens.
--- NOTE | 2020-09-07 02:20 | NUR ---
Update- Provider call Dr. Granado called in regards to patients low BP ( 70/52 MAP OF 59). Recieved orders to start low dose Levophed peripherally.
[2020-09-07 03:48] LABS: Hematocrit 31.3 % (33.0-51.0); Hemoglobin 10.4 g/dL (11.5-16.0)
[2020-09-07 04:17] LABS: Magnesium, Blood 2.1 mg/dL (1.6-2.4); Thyroid Stimulating Hormone 0.531 uIU/mL (0.360-4.800); Uric Acid, Blood 9.5 mg/dL (2.6-6.0)
[2020-09-07 04:27] LABS: Albumin, Blood 2.5 g/dL (3.4-5.0); Anion Gap 9 mmol/L (6-16); Blood Urea Nitrogen 157 mg/dL (8-24); Bun/Creatinine Ratio 39.9 (12.0-20.0); CO2, Blood 21 mmol/L (21-32); Calcium, Blood 8.3 mg/dL (8.5-10.1); Chloride, Blood 104 mmol/L (98-108); Creatinine, Blood 3.93 mg/dL (0.40-1.00); Glomerular Filtration Rate 12 (60-); Glucose, Blood 104 mg/dL (70-99); Phosphorus, Blood 5.2 mg/dL (2.5-4.9); Potassium, Blood 4.7 mmol/L (3.5-5.5); Sodium, Blood 134 mmol/L (136-145)
--- NOTE | 2020-09-07 05:24 | NUR ---
Provider Call Dr. Santo called in regards to patients bladder scan results of [id number]. Orders recieved for fraire and to change NS rate to 50 ml/hr. Updated on pt labs.
[2020-09-07 05:43] LABS: Source, Urine Catheter
[2020-09-07 05:52] LABS: Bilirubin, Urine Neg (Neg); Blood, Urine Neg (Neg); Glucose Qualitative, Urine Neg (Neg); Ketones, Urine Neg (Neg); Leukocyte Esterase, Urine 1+ (Neg); Nitrite, Urine Neg (Neg); Protein, Urine 1+ (Neg); Specific Gravity, Urine 1.015 (1.003-1.022); Urobilinogen, Urine NORM (Normal)
[2020-09-07 05:56] LABS: Appearance, Urine Clear (Clear); Color, Urine Yellow (P-Yellow)
[2020-09-07 06:05] LABS: Bacteria Mod /hpf; Red Blood Cells, Urine 0-2 /hpf (0-2); Squamous Epithelial Cells Few /hpf (Few)
--- NOTE | 2020-09-07 06:10 | NUR ---
Shift Summary Pt resting in bed. On levophed 2 mcg/min to keep MAP > 65, infusing via left wrist IV. Pt more awake/A/O compared to when she arrived on unit. Aware of location, date/year, and event. Also, denies hallucinations. Pt remains on 1 L via NC, SPO2 > 99%. AFIB, PVC's, and occasional pacer spikes. Temp fraire in place, draining to gravity (200 clear dark yellow urine output). Will report to oncoming shift.
--- NOTE | 2020-09-07 07:15 | NUR ---
PT RECEIVED FROM ZACHARIAHRN. PT ON 1L/NC, SLEEPING IN BED, HEPARIN GTT@13U/HR LEVOPHED @1 MCG/MIN, TITRATING NEEDED. NS @ 10ML AND NS @ 50ML INFUSING. POWER GLIDE IN RIGHT ARM, LEFT INNER FOREARM WITH PERIFERAL IV. LUNG SOUNDS ARE DIMINISHED T/O, PULSES PRESENT, BOWEL TONES +, HR IRREGULAR. SCD'S IN PLACE, PIZANO WITH CLEAR YELLOW OUTPUT. PT AWAKENS TO VOICE, ANSWERS APPROPRIATELY.
--- NOTE | 2020-09-07 09:32 | NUR ---
PT CONTINUES TO SLEEP, DENIES ANY NEEDS AT THIS TIME. STATES THAT HER SHOULDER CONTINUES TO HURT, POINTING AT THE LEFT, STATES SHE DOESN'T WANT TO TAKE ANY PAIN MEDICATIONS BUT WILL LET ME KNOW IF IT BECOME UNBEARABLE. PT GIVEN HER AM DOSE OF PREDNISONE AND SHE SHARES HER DISSATISFACTION WITH TAKING PREDNISONE AND WHAT IT WILL MEAN FOR HER POST DISCHARGE. ENCOURAGED HER TO JUST FOCUS ON ONE DAY AT A TIME. PT REQUESTS TO GO BACK TO SLEEP. BLINDS LEFT CLOSED.
--- NOTE | 2020-09-07 15:22 | NUR ---
PT'S SON IN LAW AIRAM HERE, BROUGHT PT HER GLASSES, ONE BLUE HEARING AID AND A BOOK. THEY WANTED IT KNOWN THAT ONLY ONE HEARING AID ARRIVED HERE.
--- NOTE | 2020-09-07 18:17 | NUR ---
KERRI HAD A GOOD SHIFT. SHE HAS RESTED WELL, BEEN APPROPRIATE IN CONVERSATIONS, JOKED WITH STAFF, VISITED WITH HER SON IN LAW AND ATE BOTH LUNCH AND DINNER. SHE HAD GOOD URINE OUTPUT WITH 900ML VIA PIZANO. HER BLOOD PRESSURES HAVE REMAINED STABLE WITH MAP >65 OFF OF LEVOPHED. HEPARIN HAS CONTINUED AT 13U/HR, SCD'S IN PLACE. AND BOTH SAW HER TODAY. PT STATES SHE PREFERS NOT TO HAVE ANY DIALYSIS UNLESS IT IS ABSOLUTELY NECESSARY. PT ALSO TOLD THAT SHE DIDN'T WANT HER HEART POUNDED ON, SHE WAS CHANGED TO A DNR.
--- NOTE | 2020-09-07 22:04 | NUR ---
Care Assumed 1900 Pt sitting in bed sleeping but easily awakens. Heparin 13 unit/hr, infusing via Powerglide to JAMES. NS at rate of 50 ml/hr. A/O x 4 and denies visual hallucination. Able to state location, correct date/year, and event. Pleasant and cooperative. Pt initially on 1 L via NC, SPO2 98%. Pts oxygen removed, SPO2 96%. Pt states she does not wear oxygen at home or CPAP at night. BP stable. Pt has occasional pacer spikes and in Afib. Pt switching bundles and having frequent PVC's when turned to the left side, repositioned to supine with good effect. See rhythm strip in patient chart. Call light within reach. Will continue to monitor.
--- NOTE | 2020-09-08 00:30 | NUR ---
Provider visit Dr. Santo in to see patient. Provider asked to hold Macrobid if GRF < 50. Pt currently not recieving Macrobid. Pt sitting in bed watching TV after. A/O X 4. VSS. AFIB, occasional PVC's, and occasionally see pacer spikes. Remains on RA, SPO2 > 95%.
[2020-09-08 04:15] LABS: Hematocrit 30.6 % (33.0-51.0); Hemoglobin 10.3 g/dL (11.5-16.0)
[2020-09-08 04:37] LABS: Albumin, Blood 2.3 g/dL (3.4-5.0); Anion Gap 9 mmol/L (6-16); Blood Urea Nitrogen 141 mg/dL (8-24); Bun/Creatinine Ratio 55.1 (12.0-20.0); CO2, Blood 20 mmol/L (21-32); Calcium, Blood 8.1 mg/dL (8.5-10.1); Chloride, Blood 108 mmol/L (98-108); Creatinine, Blood 2.56 mg/dL (0.40-1.00); Glomerular Filtration Rate 19 (60-); Glucose, Blood 158 mg/dL (70-99); Magnesium, Blood 1.9 mg/dL (1.6-2.4); Phosphorus, Blood 4.1 mg/dL (2.5-4.9); Sodium, Blood 137 mmol/L (136-145)
--- NOTE | 2020-09-08 05:30 | NUR ---
Shift Summary Pt remains on RA, SPO2 > 95%. VSS. MAP > 65. AFIB with occasional pacer spikes and PVC's. Remains A/O X 4. Able to help with turns in bed and uses call light to make needs known. Temp fraire in place, draining to gravity with 850 clear yellow urine output. Will report to oncoming shift.
--- NOTE | 2020-09-08 07:15 | NUR ---
PT RECEIVED FROM PER SONI. PT TRYING TO SLEEP, SPOKE WITH HER, SHE REQUESTS TO SLEEP SOME MORE. ASSURED THAT I WOULD BRING IN BREAKFAST AND WAKE HER THEN.
--- NOTE | 2020-09-08 08:00 | NUR ---
PT POSITIONED TO SITTING UPRIGHT FOR BREAKFAST. SHE WAS BRIEFLY DISORIENTED UPON INITIAL WAKEUP BUT REORIENTED NOW. HER LUNGS ARE DIMINISHED,HEART TONES GOOD, IRREGULAR, BELLY ACTIVE WITH GOOD APPETITE, PIZANO TO GRAVITY DRAINAGE WITH YELLOW RETURN, PULSES GOOD ALL EXTREMITIES. HEPARIN INFUSING AT 13U/HR, NS @ 50ML/HR. CBG 129, NO COVERAGE. PLEASANT.
--- NOTE | 2020-09-08 11:08 | NUR ---
PT HAD HER BATH AND FEELS REFRESHED, HAS BEEN RESTING. TALKING ABOUT GETTING HER DAYS/NIGHTS REVERSED. TRIED TO ENCOURAGE. PT RECEIVED PHONE CALL FROM FAMILY.
--- NOTE | 2020-09-08 18:07 | NUR ---
SHIFT SUMMARY; ICU TRANSFER, A/A/OX4, REPOSITIONS SELF IN BED NEEDED. VSS, PIZANO CATH IN PLACE DRAINING CLEAR YELLOW URINE. HEPARIN INFUSING AT 13UNITS/KG AND NS AT 50M/HR PER ORDERS. WILL CONTINUE TO MONITOR AND TREAT UNTIL CHANGE OF SHIFT.
--- NOTE | 2020-09-08 18:47 | NUR ---
Spiritual care note: Karine is deeply taoism and appreciative of prayer. She is not afraid of dying and states she beleives she can get better. She tells me that she wants to "keep going because losing me would be too hard on my family." Her family has suffered many losses in a short time. Karine is comfortable with her code status and states that "I will know when God is trying to take me home. I have more time." All this said, she appears rather frail and admits weakness. 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 Her "adoptive" son can be unreliable due to his drinking. I am concerned about her returning home. I will remain available.
--- NOTE | 2020-09-08 18:53 | NUR ---
MEPILEX PLACED TO GLUTAL FOLD NEAR SACRUM FOR DIME SIZED TISSUE BREAKDOWN.
[2020-09-09 05:23] LABS: BASOPHILS ABSOLUTE AUTO 0.01 K/mm3 (0.00-0.23); BASOPHILS PERCENT AUTO 0 % (0-2); EOSINOPHILS ABSOLUTE AUTO 0.02 K/mm3 (0.00-0.68); EOSINOPHILS PERCENT AUTO 0 % (0-6); Hematocrit 34.8 % (33.0-51.0); Hemoglobin 11.8 g/dL (11.5-16.0); IMMATURE GRAN ABSOLUTE AUTO 0.17 K/mm3 (0.00-0.10); IMMATURE GRAN PERCENT AUTO 2 % (0-1); LYMPHOCYTES ABSOLUTE AUTO 0.97 K/mm3 (0.84-5.20); LYMPHOCYTES PERCENT AUTO 14 % (21-46); MONOCYTES ABSOLUTE AUTO 0.51 K/mm3 (0.16-1.47); MONOCYTES PERCENT AUTO 7 % (4-13); Mean Corpuscular HGB Conc 33.9 g/dL (31.5-36.5); Mean Corpuscular Volume 94 fL (80-100); Mean Platelet Volume 9.3 fL (9.1-12.4); NEUTROPHILS ABSOLUTE AUTO 5.43 K/mm3 (1.96-9.15); NEUTROPHILS PERCENT AUTO 76 % (41-73); Platelet Count 182 K/mm3 (150-400); RDW Coefficient Variation 14.5 % (11.7-14.2); RDW Standard Deviation 50.2 fL (35.1-46.3); Red Blood Cell Count 3.69 M/mm3 (3.80-5.20); White Blood Cell Count 7.11 K/mm3 (4.00-11.30)
--- NOTE | 2020-09-09 05:30 | NUR ---
AUTOMATION QTP TESTER SUMMARY THE PT IS AXO X 2-3 BUT IS OFTEN CONFUSED ABOUT WHETHER IT IS DAY OR NIGHT. HEPARIN RUNNING ALL SHIFT W NO S/S OF BLEEDING. PT HAS HAD VERY GOOD URINE OUTPUT THIS SHIFT. VSS, O2 SATS >92% ON RM AIR. WCTM.
[2020-09-09 05:43] LABS: Albumin, Blood 2.4 g/dL (3.4-5.0); Anion Gap 8 mmol/L (6-16); Blood Urea Nitrogen 117 mg/dL (8-24); Bun/Creatinine Ratio 60.6 (12.0-20.0); CO2, Blood 23 mmol/L (21-32); Calcium, Blood 8.4 mg/dL (8.5-10.1); Chloride, Blood 110 mmol/L (98-108); Creatinine, Blood 1.93 mg/dL (0.40-1.00); Glomerular Filtration Rate 26 (60-); Glucose, Blood 147 mg/dL (70-99); Magnesium, Blood 2.1 mg/dL (1.6-2.4); Phosphorus, Blood 2.9 mg/dL (2.5-4.9); Potassium, Blood 4.9 mmol/L (3.5-5.5); Sodium, Blood 141 mmol/L (136-145)
[2020-09-09] MEDS ORDERED: DOCU100 PO (14:12)
[2020-09-09] MEDS ORDERED: SENN187 PO (14:13)
--- NOTE | 2020-09-09 14:16 | NUR ---
09/09/20- confirmed with [facility] that they will come to the pt's house this week. They have requested nursing services to be included in the order for pt. Called and updated Wendy on the plan for d/c and services with [facility] to be started this week. He acknowledged understanding. -reji 09/09/20- pt to be d/c today home. [facility] is scheduled to come to the home for therapy and Tuesday for nursing support. Called and spoke with Wendy, he would like to have the pt brought down to the vehicle by wheelchair when discharging. Wendy is not happy with the fact that she is being discharged but nurse did inform him that she has no medical reason to stay in the hospital and is not receiving any treatment. She could have the pt reviewed for SNF but he declined this. Informed nursing staff of the above. -reji
--- NOTE | 2020-09-09 14:36 | NUR ---
PT PROVIDED WITH DISCHARGE EDUCATION, INCLUDING UP TO DATE MED REC AND FOLLOW UP INFORMATION. LFA IV AND JAMES POWERGLIDE REMOVED WNL. PT HAS NO QUESTIONS OR CONCERNS. NEW RX SENT TO PHARMACY. ALL BELONGINGS SENT HOME WITH PT. NO FURTHER DISCHARGE NEEDS AT THIS TIME.
--- NOTE | 2020-09-09 14:52 | NUR ---
PT A&Ox3; CALM AND COOPERATIVE WITH CARE. PT RESTING IN BED. UP TO CHIAR WITH 1 PEROSN ASSIST. PT DENIES PAIN, SOB, NAUSEA AND DIZZINESS T/O SHIFT. PLANS FOR DISCHARGE, NOTIFIED AIRAM, PT SON IN LAW. PIZANO REMOVED. AMBER EDUCATED PT ON DISCHARGE.
== END 2020-09-09 14:35 | disposition home health service (06) | DRG 314 ==
LOC: ER 15:07 → ICUW 19:29 → ICUE 19:29 → PCU 09-08 14:39
PROVIDERS: Emergency Medicine; Internal Medicine Nephrology; ADMIT Internal Medicine
PROC: 3E02340 Introduction of Influenza Vaccine into Muscle, Percutaneous Approach (ICD-10-PCS; principal; 2020-09-06)
PROC: 3E033XZ Introduction of Vasopressor into Peripheral Vein, Percutaneous Approach (ICD-10-PCS; 2020-09-07)
DX: I30.8 Other forms of acute pericarditis (principal); G93.41 Metabolic encephalopathy; R57.1 Hypovolemic shock; N17.9 Acute kidney failure, unspecified; N18.5 Chronic kidney disease, stage 5; E87.1 Hypo-osmolality and hyponatremia; I48.21 Permanent atrial fibrillation; E87.2 Acidosis; I32 Pericarditis in diseases classified elsewhere; D63.1 Anemia in chronic kidney disease; E11.22 Type 2 diabetes mellitus with diabetic chronic kidney disease; G47.33 Obstructive sleep apnea (adult) (pediatric); E11.51 Type 2 diabetes mellitus with diabetic peripheral angiopathy without gangrene; I25.10 Atherosclerotic heart disease of native coronary artery without angina pectoris; E03.9 Hypothyroidism, unspecified; G20 Parkinson's disease; Z95.1 Presence of aortocoronary bypass graft; Z86.16 Personal history of COVID-19; Z66 Do not resuscitate; I25.2 Old myocardial infarction; Z95.5 Presence of coronary angioplasty implant and graft; Z98.890 Other specified postprocedural states; Z87.891 Personal history of nicotine dependence; Z88.0 Allergy status to penicillin; Z88.8 Allergy status to other drugs, medicaments and biological substances; Z79.899 Other long term (current) drug therapy; K21.9 Gastro-esophageal reflux disease without esophagitis; Z95.0 Presence of cardiac pacemaker; E87.5 Hyperkalemia; E83.39 Other disorders of phosphorus metabolism; E88.09 Other disorders of plasma-protein metabolism, not elsewhere classified
CPT/HCPCS: 36415; 51702; 71045; 76770; 80053; 80069; 81001; 82533; 82570; 82947; 83735; 83880; 83935; 84300; 84443; 84484; 84540; 84550; 85014; 85018; 85025; 85610; 85651; 85730; 86140; 93005; 93010; 93308; 96360; 97110; 97162; 97166; 97530; 97535; 99285-25; A9270; C1751; J0881; J1644; J7030; J7040; J7050; J7060; J7512; P9612

== ENCOUNTER 2020-09-26 20:48 | Emergency (ER) | payer MEDICARE, OTHER ==
[~2020-09-26] VITALS: Ht 157.5 cm; Wt 92.5 kg
[~2020-09-26 20:48] MED LIST changes: +ASCO500 PO; +ATOR20 PO; +CALCITONIN-SAL3.7 M5; +CALCIUM 600 +1 EA11 PO; +CENTRUM SILVER1 EAC2 PO; +CYMBALTA30 M2 PO; +DOCU100 PO; +FISH OIL 1,2001 EAC1 PO; +FURO80 PO; +FUROSEMIDE40 MG PO; +METOPROLOL TART25 MG PO; +NITR100CA PO; +SENN187 PO; +THERA-D2000 UNIT PO; +Vitamin B Comple1 EA PO
[2020-09-26] MEDS ORDERED: FURO40 PO (22:17)
== END 2020-09-26 23:10 | disposition home or self-care (01) ==
LOC: ER 20:48
DX: S09.90XA Unspecified injury of head, initial encounter (principal); Z79.899 Other long term (current) drug therapy; W01.0XXA Fall on same level from slipping, tripping and stumbling without subsequent striking against object, initial encounter
CPT/HCPCS: 70450; 99284-25

== ENCOUNTER → 2021-01-01 | Outpatient (CLI) | payer MEDICARE, OTHER ==
[2021-01-01 10:58] LABS: Creatinine Urine 40.4 mg/dL (27.00-270.00); Microalbumin, Urine Quant. 42.9 mg/L (0.000-20.000); Protein, Urine Quantitative 9.2 mg/dL (0.0-11.9)
== END | disposition home or self-care (01) ==
LOC: LAB 09:25 → LAB SHORT 09:25
PROVIDERS: Internal Medicine Nephrology
DX: N18.30 Chronic kidney disease, stage 3 unspecified (principal); D63.1 Anemia in chronic kidney disease; R76.9 Abnormal immunological finding in serum, unspecified; R94.5 Abnormal results of liver function studies; R94.6 Abnormal results of thyroid function studies
CPT/HCPCS: 81050; 82043; 82570; 84156

== ENCOUNTER → 2021-02-11 | Outpatient (CLI) | payer MEDICARE, OTHER | END | disposition home or self-care (01) | LOC: LAB SHORT 14:31 → LAB 14:31 | DX: D48.5 Neoplasm of uncertain behavior of skin (principal) | CPT/HCPCS: 88305 ==

== ENCOUNTER → 2021-05-11 | Outpatient (CLI) | payer MEDICARE, OTHER | END | disposition home or self-care (01) | LOC: LAB 11:00 → LAB SHORT 11:00 | DX: D48.5 Neoplasm of uncertain behavior of skin (principal) | CPT/HCPCS: 88305 ==

== ENCOUNTER → 2021-08-31 | Outpatient (CLI) | payer MEDICARE, OTHER | END | disposition home or self-care (01) | LOC: LAB 11:49 → LAB SHORT 11:49 | DX: N39.0 Urinary tract infection, site not specified (principal) | CPT/HCPCS: 87077; 87086; 87186 ==

== ENCOUNTER → 2022-04-10 | Outpatient (CLI) | payer MEDICARE, OTHER | END | disposition home or self-care (01) | LOC: LAB SHORT 12:45 → LAB 12:45 | DX: N39.0 Urinary tract infection, site not specified (principal) | CPT/HCPCS: 87086; 87147 ==

== ENCOUNTER → 2023-06-22 | Outpatient (CLI) | payer MEDICARE, OTHER | LOC: LAB 12:02 → LAB SHORT 12:02 | DX: N39.0 Urinary tract infection, site not specified (principal) | CPT/HCPCS: 87086 ==

== ENCOUNTER → 2023-07-18 | Outpatient (CLI) | payer MEDICARE, OTHER | LOC: LAB 12:25 → LAB SHORT 12:25 | DX: N39.0 Urinary tract infection, site not specified (principal) | CPT/HCPCS: 87077; 87086; 87186 ==

== ENCOUNTER 2024-01-05 22:38 | Emergency (ER) | payer MEDICARE, OTHER ==
[~2024-01-05] VITALS: Ht 157.5 cm; Wt 77.6 kg
[2024-01-06] MEDS ORDERED: NS 1,000 ML IV SCH (00:30)
[2024-01-06 01:15] LABS: BASOPHILS ABSOLUTE AUTO 0.04 K/mm3 (0.00-0.23); BASOPHILS PERCENT AUTO 1 % (0-2); EOSINOPHILS ABSOLUTE AUTO 0.01 K/mm3 (0.00-0.68); EOSINOPHILS PERCENT AUTO 0 % (0-6); Hematocrit 40.5 % (33.0-51.0); Hemoglobin 14.2 g/dL (11.5-16.0); IMMATURE GRAN ABSOLUTE AUTO 0.02 K/mm3 (0.00-0.10); IMMATURE GRAN PERCENT AUTO 0 % (0-1); LYMPHOCYTES ABSOLUTE AUTO 0.72 K/mm3 (0.84-5.20); LYMPHOCYTES PERCENT AUTO 9 % (21-46); MONOCYTES ABSOLUTE AUTO 0.64 K/mm3 (0.16-1.47); MONOCYTES PERCENT AUTO 8 % (4-13); Mean Corpuscular HGB 33.6 pg (26.0-34.0); Mean Corpuscular HGB Conc 35.1 g/dL (31.5-36.5); Mean Corpuscular Volume 96 fL (80-100); Mean Platelet Volume 9.4 fL (9.1-12.4); NEUTROPHILS ABSOLUTE AUTO 6.57 K/mm3 (1.96-9.15); NEUTROPHILS PERCENT AUTO 82 % (41-73); Platelet Count 147 K/mm3 (150-400); RDW Coefficient Variation 12.5 % (11.7-14.2); RDW Standard Deviation 44.2 fL (35.1-46.3); Red Blood Cell Count 4.22 M/mm3 (3.80-5.20)
[2024-01-06] MEDS ORDERED: Acetaminophen 500 MG Tab PO ONE (01:25)
[2024-01-06 01:27] LABS: Source, Urine Straight Cath
[2024-01-06 01:29] LABS: International Normalized Ratio 1.2; Prothrombin Time Results 12.7 Sec (9.7-11.5)
[2024-01-06 01:34] LABS: Bilirubin, Urine Neg (Neg); Blood, Urine 2+ (Neg); Glucose Qualitative, Urine Neg (Neg); Ketones, Urine Neg (Neg); Leukocyte Esterase, Urine Neg (Neg); Nitrite, Urine Neg (Neg); Protein, Urine 1+ (Neg); Urobilinogen, Urine NORM (Normal)
[2024-01-06 01:41] LABS: Albumin, Blood 3.4 g/dL (3.4-5.0); Albumin/Globulin Ratio 0.9 (0.8-1.8); Bilirubin, Total 0.8 mg/dL (0.1-1.0); Bun/Creatinine Ratio 32.4 (12.0-20.0); Creatinine, Blood 1.02 mg/dL (0.40-1.00); Globulin, Blood 3.7 g/dL (2.2-4.0); Magnesium, Blood 1.5 mg/dL (1.6-2.4); Phosphorus, Blood 2.3 mg/dL (2.5-4.9); Potassium, Blood 3.4 mmol/L (3.5-5.5); Thyroid Stimulating Hormone 0.119 uIU/mL (0.360-4.800); Total Protein, Blood 7.1 g/dL (6.4-8.2); Uric Acid, Blood 6.5 mg/dL (2.6-6.0)
[2024-01-06 02:00] LABS: Appearance, Urine Clear (Clear); Color, Urine Yellow (P-Yellow)
[2024-01-06 02:01] LABS: Bacteria Few /hpf; Squamous Epithelial Cells Not Seen /hpf (Few); White Blood Cells, Urine 0-2 /hpf (0-5)
[2024-01-06] MEDS ORDERED: Potassium Phosphate,Monobasic 500 MG Tablet PO ONE (02:10)
[2024-01-06] MEDS ORDERED: Magnesium Sulf 2 GM/Water 50ML 50 ML IV ONE (02:10)
[2024-01-06 03:50] VITALS: BP 111/53
== END 2024-01-06 04:00 | disposition home or self-care (01) ==
LOC: ER 22:38
PROVIDERS: Emergency Medicine
DX: U07.1 COVID-19 (principal); E86.0 Dehydration; E83.42 Hypomagnesemia; E83.39 Other disorders of phosphorus metabolism; E87.6 Hypokalemia; R53.1 Weakness; E78.5 Hyperlipidemia, unspecified; E03.9 Hypothyroidism, unspecified; E11.22 Type 2 diabetes mellitus with diabetic chronic kidney disease; I13.0 Hypertensive heart and chronic kidney disease with heart failure and stage 1 through stage 4 chronic kidney disease, or unspecified chronic kidney disease; N18.30 Chronic kidney disease, stage 3 unspecified; I50.32 Chronic diastolic (congestive) heart failure; G47.33 Obstructive sleep apnea (adult) (pediatric); W18.30XA Fall on same level, unspecified, initial encounter; Z79.899 Other long term (current) drug therapy; Z88.0 Allergy status to penicillin; Z88.1 Allergy status to other antibiotic agents; Z88.8 Allergy status to other drugs, medicaments and biological substances
CPT/HCPCS: 71045; 72170; 80053; 81001; 82550; 83605; 83735; 84100; 84443; 84484; 84550; 85025; 85610; 85730; 93005; 93010; 96361; 96365; 99285-25; A9270; J3475; J7030; P9612

== ENCOUNTER 2024-07-11 20:40 | Emergency (ER) | payer MEDICARE, OTHER ==
[~2024-07-11] VITALS: Ht 157.5 cm; Wt 79.8 kg
[2024-07-11 21:26] LABS: Source, Urine Clean Catch
[2024-07-11 21:32] LABS: Bilirubin, Urine Neg (Neg); Blood, Urine Neg (Neg); Glucose Qualitative, Urine Neg (Neg); Ketones, Urine Neg (Neg); Leukocyte Esterase, Urine 2+ (Neg); Nitrite, Urine Neg (Neg); Protein, Urine Neg (Neg); Urobilinogen, Urine NORM (Normal)
[2024-07-11 21:41] LABS: Appearance, Urine Clear (Clear); Color, Urine Yellow (P-Yellow)
[2024-07-11 21:42] LABS: Bacteria Few /hpf; Red Blood Cells, Urine Not Seen /hpf (0-2); Squamous Epithelial Cells Rare /hpf (Few)
[2024-07-12 00:08] VITALS: BP 152/56
[2024-07-12] MEDS ORDERED: CIPR500 PO (00:15)
[2024-07-12] MEDS ORDERED: Ciprofloxacin 500 MG Tab PO ONE (00:15)
== END 2024-07-12 00:39 | disposition home or self-care (01) ==
LOC: ER 20:40
PROVIDERS: Student in an Organized Health Care Education/Training Program
DX: N39.0 Urinary tract infection, site not specified (principal); S09.90XA Unspecified injury of head, initial encounter; E03.9 Hypothyroidism, unspecified; E78.5 Hyperlipidemia, unspecified; I13.0 Hypertensive heart and chronic kidney disease with heart failure and stage 1 through stage 4 chronic kidney disease, or unspecified chronic kidney disease; E11.22 Type 2 diabetes mellitus with diabetic chronic kidney disease; N18.30 Chronic kidney disease, stage 3 unspecified; I50.32 Chronic diastolic (congestive) heart failure; G20.A1 Parkinson's disease without dyskinesia, without mention of fluctuations; Z95.5 Presence of coronary angioplasty implant and graft; Z95.0 Presence of cardiac pacemaker; Z88.0 Allergy status to penicillin; Z88.8 Allergy status to other drugs, medicaments and biological substances; Z79.890 Hormone replacement therapy; Z79.899 Other long term (current) drug therapy; W01.0XXA Fall on same level from slipping, tripping and stumbling without subsequent striking against object, initial encounter
CPT/HCPCS: 70450; 81001; 87086; 99284-25; A9270

== ENCOUNTER → 2024-08-18 | Outpatient (CLI) | payer MEDICARE, OTHER ==
[~2024-08-18] MED LIST changes: +CIPR500 PO
== END | disposition home or self-care (01) ==
LOC: LAB 12:54 → LAB SHORT 12:54
DX: N39.0 Urinary tract infection, site not specified (principal)
CPT/HCPCS: 87077; 87086; 87186

== ENCOUNTER → 2024-09-11 | Outpatient (CLI) | payer MEDICARE, OTHER ==
[2024-09-11 13:33] LABS: Protein, Urine Quantitative 6.4 mg/dL (0.0-11.9)
[2024-09-11 13:53] LABS: Microalbumin, Urine Quant. 7.61 mg/L (0.000-20.000)
== END ==
LOC: LAB SHORT 08:05 → LAB 08:05 → LAB FUT 09-07 14:45
PROVIDERS: Internal Medicine Nephrology
DX: N18.30 Chronic kidney disease, stage 3 unspecified (principal); N25.81 Secondary hyperparathyroidism of renal origin; E78.00 Pure hypercholesterolemia, unspecified; R76.9 Abnormal immunological finding in serum, unspecified; R94.5 Abnormal results of liver function studies; R94.6 Abnormal results of thyroid function studies
CPT/HCPCS: 82043; 82570; 84156

== ENCOUNTER → 2024-10-05 | Outpatient (CLI) | payer MEDICARE, OTHER | LOC: LAB SHORT 14:47 → LAB 14:47 | DX: R30.0 Dysuria (principal) | CPT/HCPCS: 87077; 87086; 87186 ==

== ENCOUNTER → 2024-10-14 | Outpatient (CLI) | payer MEDICARE, OTHER | LOC: LAB 13:05 → LAB SHORT 13:05 | DX: N39.0 Urinary tract infection, site not specified (principal) | CPT/HCPCS: 87086 ==

== ENCOUNTER → 2025-02-25 | Outpatient (CLI) | payer OTHER, MEDICARE | LOC: LAB 14:27 → LAB SHORT 14:27 | DX: N39.0 Urinary tract infection, site not specified (principal); R31.9 Hematuria, unspecified | CPT/HCPCS: 87086 ==

== ENCOUNTER → 2025-04-25 | Outpatient (CLI) | payer MEDICARE, OTHER ==
[2025-04-26 10:48] LABS: Campylobacter Sp Not Detected (NOT DETECT)
[2025-04-26 10:49] LABS: E. Coli O157 Not Detected (NOT DETECT); Enteroaggregative E. coli-EAEC Not Detected (NOT DETECT); Enteropathogenic E. coli-EPEC Not Detected (NOT DETECT); Enterotoxigenic E. coli-ETEC Not Detected (NOT DETECT); Salmonella Sp Not Detected (NOT DETECT); Shiga Toxin-prod E. coli-STEC Not Detected (NOT DETECT); Shigella/Enteroin E. coli-EIEC Not Detected (NOT DETECT); Vibrio Sp Not Detected (NOT DETECT)
== END ==
LOC: LAB 10:00 → LAB SHORT 10:00
PROVIDERS: Family Medicine
DX: K52.9 Noninfective gastroenteritis and colitis, unspecified (principal)
CPT/HCPCS: 87507